=== PATIENT | male | born 1955 | race African-American/Black ===

== ENCOUNTER 2019-06-19 08:56 | Inpatient (IN) | payer MEDICARE ==
[2019-06-18 13:47] VITALS: BMI 25.7
--- NOTE | 2019-06-18 14:11 | HP ---
HISTORY OF PRESENT ILLNESS: Jef Kemp is a 64-year-old black male, who lives with his sister. He is . 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 He spends most of his time walking and viewing TV. He does not smoke. He occasionally drinks whiskey. The patient had a screening colonoscopy performed by Dr. 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 This was tattooed. Colonoscopy performed, April 18, 2019. The patient is referred for right colectomy due to hepatic flexure TVA unresectable. The patient reports having had a cardiac stress test 4 to 6 weeks ago that was normal. He denies any cardiac symptomatology. He was sent by caregivers, Dr. Jaun Long or Dr. Piña or Dr. Menjivar for this. Dr. Piña who has seen him for leukopenia, found him to have hepatitis C. Plan is to treat him for his hepatitis C after right colon resection. Plan is for a bowel prep, clear liquids the day prior, robotic and laparoscopic-assisted right colectomy. The patient had laboratories 04/23/2019, CBC, comprehensive metabolic profile that are normal. ALLERGIES: NONE. HABITS: Tobacco never. Alcohol, occasional whiskey. MEDICATIONS: None. PAST SURGICAL HISTORY: Noncontributory, except for colonoscopies. PAST MEDICAL HISTORY: Hepatitis C. Negative cardiac stress test, treadmill recently. REVIEW OF SYSTEMS: Noncontributory. FAMILY HISTORY: Noncontributory for colon cancer. PHYSICAL EXAMINATION: VITAL SIGNS: Weight 201 pounds, 73 inches, 26 BMI, blood pressure 154/83, heart rate 79, temperature 98.4 degrees. HEAD, EYES, EARS, NOSE, AND THROAT: Unremarkable. Sclerae nonicteric. LUNGS: Clear to auscultation. CARDIAC: Regular rate and rhythm. No murmur or gallop. ABDOMEN: Soft and nontender. No mass. EXTREMITIES: Unremarkable. No ankle edema. NEUROLOGICAL: Intact. No focal deficit. SKIN: Nonjaundiced. LABORATORY DATA: Laboratories, 04/23/2019; white count 3.5, hemoglobin 13.8. Comprehensive metabolic profile normal with normal renal function test, normal liver function test. Folate and vitamin B12 are normal. Hepatitis C, elevated titers. ASSESSMENT AND PLAN: 1. Tubulovillous adenoma, 40 mm, hepatic flexure, tattooed, 04/18/2019. Plan robot and laparoscopic-assisted right colectomy. Risks of infection, bleeding, reoperation, anastomotic leak are discussed. He consents. 2. Hepatitis C. Plan treatment with Dr. Long post colon resection. 3. Evaluate liver morphology, possible liver biopsy during the procedure. Job ID: [id number]
[2019-06-19] MEDS ORDERED: Midazolam HCl 2 mg/2 ml Vial ONE (09:43)
[2019-06-19] MEDS ORDERED: Dexamethasone 4 mg/ml Vial ONE (09:43)
[2019-06-19] MEDS ORDERED: Fentanyl 100 MCG/2 ML VIAL ONE ×3 (09:43→17:08)
[2019-06-19] MEDS ORDERED: Bupivacaine/Epinephrine 0.25% 30 ML VIAL ONE (12:19)
[2019-06-19] MEDS ORDERED: Fentanyl 250 MCG/5 ML VIAL ONE (12:20)
[2019-06-19] MEDS ORDERED: Piperacillin/Tazobactam 3.375 GM VIAL ONE ×2 (13:04→15:44)
[2019-06-19] MEDS ORDERED: hydrALAZINE 20 MG/ML VIAL SLOW IVP PRN (16:36)
[2019-06-19] MEDS ORDERED: Ondansetron PF 4 MG/2 ML Vial IVP PRN (16:36)
[2019-06-19] MEDS ORDERED: Morphine 4 MG/ML VIAL SLOW IVP PRN (16:36)
[2019-06-19] MEDS ORDERED: Morphine 2 MG/ML SYRINGE SLOW IVP PRN (16:36)
[2019-06-19] MEDS ORDERED: traMADol HCl 50 MG TAB PO PRN ×2 (16:39)
[2019-06-19] MEDS ORDERED: Acetaminophen 500 MG TAB PO PRN (16:39)
[2019-06-19] MEDS ORDERED: Morphine Sulfate 2 MG/ML SYRINGE SLOW IVP PRN (16:43)
[2019-06-19] MEDS ORDERED: Promethazine HCl 25 MG/ML VIAL SLOW IVP PRN (16:43)
[2019-06-19] MEDS ORDERED: PACU-Morphine 4MG/ML VIAL SLOW IVP PRN (16:43)
[2019-06-19] MEDS ORDERED: Ondansetron HCl/PF 4 MG/2 ML Vial IVP PRN (16:43)
[2019-06-19] MEDS ORDERED: HYDROmorphone 2 MG/ML VIAL SLOW IVP PRN (16:43)
[2019-06-19] MEDS ORDERED: Ketorolac Tromethamine 30 MG/ML VIAL IVP PRN (16:43)
[2019-06-19] MEDS ORDERED: Promethazine HCl 25 MG/ML VIAL IM PRN (16:43)
[2019-06-19] MEDS ORDERED: Meperidine HCl/PF 25 MG/ML VIAL SLOW IVP PRN (16:43)
[2019-06-19] MEDS ORDERED: Labetalol HCl 100 MG/20 ML VIAL ONE (17:11)
[2019-06-19] MEDS ORDERED: cefOXitin 2 GM in Sodium Chloride 0.9% 100 ML IVPB SCH (18:00)
[2019-06-19] MEDS ORDERED: Promethazine HCl 25 MG/ML VIAL ONE (18:54)
[2019-06-19] MEDS: D5 1/2 NS w/20 mEq KCL 1,000 ML IV SCH (19:42)
[2019-06-19] MEDS: Ketorolac Tromethamine 30 MG/ML VIAL IVP SCH (19:43)
[2019-06-19] MEDS: Acetaminophen 1,000 MG in Premix Bag 1 BAG IVPB SCH (19:43)
[2019-06-19] MEDS: Famotidine 20 MG TAB PO SCH (19:44)
[2019-06-19] MEDS: Enoxaparin Sodium 40 MG/0.4 ML SYRINGE SC SCH (19:44)
[2019-06-19] MEDS: Gabapentin 300 MG CAP PO SCH (19:44)
[2019-06-19] MEDS: Famotidine/PF 20 mg/2ml Vial SLOW IVP SCH (19:44)
[2019-06-19] MEDS: cefOXitin 2 GM in Sodium Chloride 0.9% 100 ML IVPB SCH (21:31)
[2019-06-20] MEDS: D5 1/2 NS w/20 mEq KCL 1,000 ML IV SCH ×3 (00:10→15:52)
[2019-06-20] MEDS: Ketorolac Tromethamine 30 MG/ML VIAL IVP SCH ×4 (00:10→17:25)
[2019-06-20] MEDS: Acetaminophen 1,000 MG in Premix Bag 1 BAG IVPB SCH ×3 (00:10→11:43)
[2019-06-20] MEDS: cefOXitin 2 GM in Sodium Chloride 0.9% 100 ML IVPB SCH (04:58)
[2019-06-20 06:30] LABS: #Basophils 0.1 thou/uL (0.0-0.2); #Lymphocytes 1.2 thou/uL (1.20-3.40); #Monocytes 0.7 thou/uL (0.11-0.59); #Neutrophils 4.6 thou/uL (1.40-6.50); %Basophils 1.1 % (0.0-1.0); %Eosinophils 0.1 % (0.0-10.0); %Lymphocytes 17.7 % (21.0-51.0); %Monocytes 10.6 % (0.0-10.0); %Neutrophils 70.5 % (42.0-75.0); Mean Corpuscular HGB CONC 33.6 g/dL (32.0-36.0); Mean Corpuscular Hemoglobin 31.1 pg (27.0-31.0); Mean Corpuscular Volume 92.5 fL (78.0-98.0); Mean Platelet Volume 9.6 fL (7.4-10.4); Platelet Count 122 thou/uL (130-400); RBC Distribution Width 11.8 % (11.5-14.5); Red Blood Cell (RBC) Count 4.17 mill/uL (4.70-6.10); White Blood Cell (WBC) Count 6.6 thou/uL (4.8-10.8)
[2019-06-20 07:01] LABS: Anion Gap 11 mmol/L (10-20); BUN (Urea Nitrogen) 12 mg/dL (8.4-25.7); Calc. Creatinine Clearance 79 mL/min (70-130); Calcium 8.4 mg/dL (7.8-10.44); Carbon Dioxide 25 mmol/L (23-31); Chloride 108 mmol/L (98-107); Estimated GFR-MDRD 75; Glucose 128 mg/dL (80-115); Potassium 4.3 mmol/L (3.5-5.1); Sodium 140 mmol/L (136-145)
[2019-06-20] MEDS: Famotidine/PF 20 mg/2ml Vial SLOW IVP SCH (08:44)
[2019-06-20] MEDS: Gabapentin 300 MG CAP PO SCH ×3 (08:44→20:15)
[2019-06-20] MEDS: Famotidine 20 MG TAB PO SCH ×2 (08:45→20:15)
--- NOTE | 2019-06-20 08:57 | OP ---
DATE OF PROCEDURE: 06/19/2019 PREOPERATIVE DIAGNOSIS: Tubulovillous adenoma, hepatic flexure, not amenable to endoscopic resection. POSTOPERATIVE DIAGNOSIS: Tubulovillous adenoma, hepatic flexure, not amenable to endoscopic resection. PROCEDURES PERFORMED: Robotic right colectomy. ANESTHESIA: TAP block and general anesthesia. ESTIMATED BLOOD LOSS: 100 mL. BLOOD TRANSFUSION: None. DESCRIPTION OF PROCEDURE: The patient was taken to the operating room, where under general anesthesia, Valle catheter was placed in the and abdomen was prepared with ChloraPrep and draped in routine fashion. A left paraumbilical lateral incision was made, and pneumoperitoneum to 15 mmHg was obtained with a Veress needle, replaced with an 8 port for the camera. Left upper quadrant and left lower quadrant incisions were made, and a 15 mm port was placed. An 8 mm port was placed for ports. Left upper incision was made. An 11 mm port was placed for the assistant professor of art port. A robot was docked, secured, and robotic colectomy was undertaken. The right colon was tented to the left and ileocolic vessels were dissected free. The duodenum was identified. Ileocolic vessels were divided with the vessel sealer. Once these were sealed over several levels and divided, further dissection was carried out freeing the duodenum. The right colon mesentery was serially divided toward the proximal transverse colon just distal to the area. This colon was dissected free and divided with Endo robot stapler. Terminal ileum had been dissected free and divided with Endo-DEBI stapler. Hepatic flexure was taken down. Right colon was mobilized. Duodenum kept free of harm. Right colon and appendix were removed, freed, and placed over the right lobe of the liver. Ileocolic anastomosis was created with Endo-DEBI stapler techniques aligning the ileum and proximal transverse colon with 2-0 Vicryl sutures. Once this was done, common enterotomy colotomy was made toward the midline to the patient's left, and a stapler was inserted, and then a staple anastomosis was created in a common opening closed in 2 layers with continuous suture of 2-0 Vicryl and then Lembert sutures of 3-0 Vicryl. At this point, through the left lower quadrant incision, the incision was enlarged around the port site and the wound protector was inserted, and colon was removed and submitted to pathology after opening on the back table to ensure removal of the . Good hemostasis was noted. The larger port site was closed with a GraNee needle 0 Vicryl. At the extraction site, the posterior fascia was closed with #1 PDS and anterior fascia with continuous [id number] suture of #1 PDS. Skin and subcutaneous tissues were irrigated. Skin was approximated with 4-0 Monocryl subcuticular. The patient tolerated the procedure well. Job ID: [id number]
[2019-06-20] MEDS ORDERED: Prevnar 13-Val Conj/PF 0.5 ML SYRINGE IM ONE (09:00)
[2019-06-20] MEDS ORDERED: FLU VACC TS2019-20(65YR UP)/PF 180 MCG/0.5 ML SYRINGE IM ONE (09:00)
--- NOTE | 2019-06-20 16:43 | PRG ---
DATE OF SERVICE: 06/20/2019 SUBJECTIVE: Jef Kemp is doing well today. He has not any nausea or vomiting. He is tolerating his diet, liquids. OBJECTIVE: VITAL SIGNS: Temperature 98.1 degrees, pulse 79, and blood pressure 148/73. LUNGS: Clear to auscultation. CARDIAC: Regular rate and rhythm without murmur or gallop. ABDOMEN: Soft. Bowel sounds present. Slightly distended. EXTREMITIES: Unremarkable. LABORATORY DATA: White count 6 and hemoglobin 13. Basic metabolic profile normal. ASSESSMENT AND PLAN: Doing well, status post right colon resection for TVA. Pathology pending. Laboratories are stable. We will advance his diet, saline lock him and hopefully will be ready to discharge home in the morning. Job ID: [id number]
[2019-06-20] MEDS: Enoxaparin Sodium 40 MG/0.4 ML SYRINGE SC SCH (20:15)
[2019-06-21] MEDS: Ketorolac Tromethamine 30 MG/ML VIAL IVP SCH ×4 (00:14→17:16)
[2019-06-21] MEDS: Gabapentin 300 MG CAP PO SCH ×2 (08:12→14:24)
[2019-06-21] MEDS: Famotidine 20 MG TAB PO SCH (08:12)
[2019-06-21 15:26] VITALS: BP 152/77; TEMP 99
--- NOTE | 2019-06-21 18:08 | PRG ---
DATE OF SERVICE: 06/21/2019 SUBJECTIVE: Jef Kemp is doing well after robotic right colon resection for TVA, hepatic flexure. OBJECTIVE: VITAL SIGNS: Stable. Afebrile. LUNGS: Clear to auscultation. CARDIAC: Regular rate and rhythm without murmur or gallop. ABDOMEN: Soft, nontender. He has tolerated his diet. He has had bowel movements. He wants to go home. PLAN: Plan is to discharge home today. Follow up in my office in 2 to 3 weeks. Job ID: [id number]
--- NOTE | 2019-06-21 18:13 | DIS ---
DATE OF ADMISSION: 06/19/2019 DATE OF DISCHARGE: 06/21/2019 DISCHARGE DIAGNOSES: TVA, hepatic flexure. PROCEDURES PERFORMED: Robotic right colon resection. HOSPITAL COURSE: A 64-year-old male with a TVA, unresectable. He underwent a bowel prep, robotic right colon resection, and discharged to home to resume his home medications; Tylenol and Advil [id number] for pain. He was given Ultram if needed. He did not require on this hospitalization. Pathology pending. Job ID: [id number]
== END 2019-06-21 17:48 | disposition home or self-care (01) | DRG 331 ==
LOC: SDC 08:56 → SURG A 16:36
PROVIDERS: ADMIT Specialist; ATTEND Specialist
PROC: 0DTF4ZZ Resection of Right Large Intestine, Percutaneous Endoscopic Approach (ICD-10-PCS; principal; 2019-06-19)
PROC: 8E0W3CZ Robotic Assisted Procedure of Trunk Region, Percutaneous Approach (ICD-10-PCS; 2019-06-19)
DX: D12.3 Benign neoplasm of transverse colon (principal); B19.20 Unspecified viral hepatitis C without hepatic coma
CPT/HCPCS: 36415; 36416; 80048; 83036; 85025; 88309; 90471; 90662; 90670; 93005; 93010; G0008; G0009; J0131; J0694; J1100; J1650; J1885; J2250; J2543; J2550; J3010; J3490; S0028

== ENCOUNTER 2019-09-17 10:28 | Emergency (ER) | payer MEDICARE ==
[2019-09-17 11:22] LABS: #Basophils 0.1 thou/uL (0.0-0.2); #Eosinphils 0.1 thou/uL (0.0-0.7); #Lymphocytes 1.4 thou/uL (1.20-3.40); #Monocytes 0.3 thou/uL (0.11-0.59); #Neutrophils 2.1 thou/uL (1.40-6.50); %Basophils 1.6 % (0.0-1.0); %Eosinophils 1.3 % (0.0-10.0); %Monocytes 8.7 % (0.0-10.0); %Neutrophils 53.5 % (42.0-75.0); Hemoglobin 14.6 g/dL (14.0-18.0); Mean Corpuscular HGB CONC 33.4 g/dL (32.0-36.0); Mean Corpuscular Hemoglobin 30.8 pg (27.0-31.0); Mean Corpuscular Volume 92.4 fL (78.0-98.0); Mean Platelet Volume 9.1 fL (7.4-10.4); Platelet Count 135 thou/uL (130-400); RBC Distribution Width 11.8 % (11.5-14.5); Red Blood Cell (RBC) Count 4.73 mill/uL (4.70-6.10)
[2019-09-17 11:48] LABS: ALT (SGPT) 8 U/L (8-55); AST (SGOT) 16 U/L (5-34); Albumin 4.4 g/dL (3.4-4.8); Alkaline Phosphatase 74 U/L (40-110); Anion Gap 12 mmol/L (10-20); BUN (Urea Nitrogen) 12 mg/dL (8.4-25.7); Bilirubin, Total 0.5 mg/dL (0.2-1.2); Calc. Creatinine Clearance 0 mL/min (70-130); Calcium 9.3 mg/dL (7.8-10.44); Carbon Dioxide 27 mmol/L (23-31); Chloride 107 mmol/L (98-107); Estimated GFR-MDRD 77; Globulin 3.8 g/dL (2.4-3.5); Glucose 104 mg/dL (80-115); Potassium 3.9 mmol/L (3.5-5.1); Protein, Total 8.2 g/dL (5.8-8.1); Sodium 142 mmol/L (136-145)
[2019-09-17 14:13] LABS: Bilirubin Negative (Negative); Blood, Urine Negative (Negative); Clarity Clear (Clear); Glucose, Urine (Dipstick) Normal (Negative); Leukocyte Negative Leu/uL (Negative); Nitrite Negative (Negative); Protein, Urine (Dipstick) Negative (Neg-Trace); Urobilinogen Normal mg/dL (Less than 2)
--- NOTE | 2019-09-17 15:23 | CT ---
CT ABDOMEN AND PELVIS WITH IV CONTRAST 09/17/2019 CLINICAL INFORMATION: Abdominal pain and blood in stool. COMPARISON: None. Technique: Multiple contiguous axial CT images are obtained through the abdomen and pelvis with IV contrast. Cor onal reformatted images are provided. FINDINGS: Lower Chest: within normal limits. Vessels: Vascular calcifications are seen in the region of the aortic bifurcation and involving the i liac arteries. Abdomen: Portal vein:Patent Gallbladder: Within normal limits for CT imaging. Liver: There are at least 4 subcentimeter hypodense too small to characterize lesions in each lobe of the liver. Spleen: within normal limits. Pancreas: within normal limits. Adrenals: within normal limits. Kidneys: within normal limits. Bowel: There are postsurgical changes involving the cecum. Loops of small bowel are normal in caliber . There is question mild thickening in the region of the rectum, this may be related to incomplete distention. However, this would be better evaluated with colonoscopy. Appendix: Not visualized and may be surgically absent. Peritoneum: No ascites or free air; no fluid collection. Mesentery and Retroperitoneum: There is nonspecific mild increase in periportal lymph nodes with larg est lymph node measuring 1.2 cm in short axis dimension. Abdominal Wall: Tiny fat-containing umbilical hernia is seen. Pelvis: Reproductive Organs: Prostate gland is enlarged measuring 6.1 cm in short axis dimension. Pelvis within normal limits. Bladder: within normal limits. Bones: There is bilateral hip osteoarthritis greater on the right. There is a sclerotic density seen in left iliac bone in a supra-acetabular region which may represent a large bone island. No additional suspicious lytic or sclerotic osseous lesions are identified. IMPRESSION: 1. Suggested focal area of wall thickening involving the rectum which could be related to incomplete distention, but colonic lesion/neoplasm in this region cannot be excluded. This would be better evaluated with colonoscopy. No adjacent enlarged lymph nodes or inflammatory stranding is seen. 2. Nonspecific mildly prominent and increased number of lymph nodes in the gardenia hepatis. 3. Scattered subcentimeter hypodense lesions in each lobe of the liver. This is overall nonspecific. However, metastatic disease cannot be excluded based on this exam. 4. Postsurgical changes in the region of the cecum. 5. Mildly enlarged prostate gland.
== END 2019-09-17 16:12 | disposition home or self-care (01) ==
LOC: ERS 10:28
DX: K92.2 Gastrointestinal hemorrhage, unspecified (principal)
CPT/HCPCS: 36415; 74177; 80053; 81003; 85025; 86850; 86900; 86901

== ENCOUNTER 2020-08-01 10:32 | Emergency (ER) | payer MEDICARE ==
[2020-08-01 22:15] LABS: SARS-CoV-2 MS2 Positive; SARS-CoV-2 N Gene Negative; SARS-CoV-2 S Gene Negative; SARS-CoV-2 by NAA Not Detected (NotDetected); SARS-CoV-2 orf1ab Negative
== END 2020-08-01 11:06 | disposition home or self-care (01) ==
LOC: ERS 10:32
DX: Z20.828 Contact with and (suspected) exposure to other viral communicable diseases (principal)
CPT/HCPCS: 87635; 99283; U0003